=== PATIENT | male | born 1975 | race Caucasian/White ===

== ENCOUNTER 2017-05-14 14:41 | Emergency (ER) | payer SELFPAY ==
[~2017-05-14] VITALS: Ht 175.3 cm; Wt 113.4 kg
[~2017-05-14 14:41] MED LIST: BMSB30; CPR500T PO; DIPH1TAB25; METH10TA2 PO; TRM50T PO
--- OUTSIDE RECORDS SUMMARY | 2017-05-14 14:49 | XMS REPORT ---
Author JEANNE [facility] eClinicalWorks Address Unknown Phone Unavailable Care Team Providers Care Resolution Agent Name Role Phone JEANNE YOUSIF CP Unavailable Allergies, Adverse Reactions, Alerts Substance Reaction Event Type N.K.D.A. Info Not Available Non Drug Allergy Problems Problem Type Condition Code Onset Dates Condition Status Problem Obstructive sleep apnea (adult) (pediatric) 327.23 Active Problem Anxiety state, unspecified 300.00 Active Problem Elevated blood pressure reading without diagnosis of hypertension 796.2 Active Assessment Dental examination Z01.20 Active Medications No Known Medications Procedures Procedure Coding System Code Date BITEWINGS - FOUR FILMS CPT-4 D0274 Apr 03, 2016 PANORAMIC FILM SEE ALSO CODE 13934 CPT-4 D0330 Apr 03, 2016 COMP ORAL EVALUATION - NEW/EST PT CPT-4 D0150 Apr 03, 2016 Vital Signs Date/Time: Apr 03, 2016 Blood Pressure Diastolic 75 mmHg Blood Pressure Systolic 133 mmHg Height 69 in Results No Known Results Summary Purpose eClinicalWorks Submission
--- OUTSIDE RECORDS SUMMARY | 2017-05-14 14:49 | XMS REPORT | Continuity of Care Document ---
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 10/27/2008 LYLE BULLARD DDS N 311 MO DEPRESSIVE DISORDER NOS 10/27/2008 BRIDGETTE STEVENS MD 304.00 SA OPIOID DEPENDENCE 10/27/2008 BRIDGETTE STEVENS MD 311 MO DEPRESSIVE DISORDER NOS 12/01/2008 304.80 SA POLYSUB DEP 12/01/2008 314.01 ATTENTION-DEFICIT HYPERACTIVITY DISORDER 12/01/2008 LYLE BULLARD DDS N 304.80 SA POLYSUB DEP 12/01/2008 LYLE BULLARD DDS N 314.01 ATTENTION-DEFICIT HYPERACTIVITY DISORDER 12/01/2008 RBIDGETTE STEVENS MD 304.80 SA POLYSUB DEP 12/01/2008 BRIDGETTE STEVENS MD 314.01 ATTENTION-DEFICIT HYPERACTIVITY DISORDER 12/06/2008 296.30 MAJOR DEPRESSIVE AFFECTIVE DISORDER RECURRENT EPISODE UNSPECIFIED DEGREE 12/06/2008 379.91 PAIN IN OR AROUND EYE 12/06/2008 LYLE BULLARD DDS N 296.30 MAJOR DEPRESSIVE AFFECTIVE DISORDER RECURRENT EPISODE UNSPECIFIED DEGREE 12/06/2008 LYLE BULLARD DDS N 379.91 PAIN IN OR AROUND EYE 12/06/2008 BRIDGETTE STEVENS MD 296.30 MAJOR DEPRESSIVE AFFECTIVE DISORDER RECURRENT EPISODE UNSPECIFIED DEGREE 12/06/2008 BRIDGETTE STEVENS MD 379.91 PAIN IN OR AROUND EYE 01/11/2009 304.03 OPIOID TYPE DEPENDENCE IN REMISSION 01/11/2009 LYLE BULLARD DDS N 304.03 OPIOID TYPE DEPENDENCE IN REMISSION 01/11/2009 BRIDGETTE STEVENS MD 304.03 OPIOID TYPE DEPENDENCE IN REMISSION 01/31/2009 780.79 FATIGUE 01/31/2009 LYLE BULLARD DDS 780.79 FATIGUE 01/31/2009 BRIDGETTE STEVENS MD 780.79 FATIGUE 09/29/2009 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 09/29/2009 LYLE BULLARD DDS 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 09/29/2009 BRIDGETTE STEVENS MD 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 04/30/2012 796.2 ELEVATED BLOOD PRESSURE READING WITHOUT DIAGNOSIS OF HYPERTENSION 04/30/2012 LYLE BULLARD DDS 796.2 ELEVATED BLOOD PRESSURE READING WITHOUT DIAGNOSIS OF HYPERTENSION 04/30/2012 BRIDGETTE STEVENS MD 796.2 ELEVATED BLOOD PRESSURE READING WITHOUT DIAGNOSIS OF HYPERTENSION 07/16/2012 300.00 AN ANXIETY UNSPEC 07/16/2012 LYLE BULLARD DDS 300.00 AN ANXIETY UNSPEC 07/16/2012 BRIDGETTE STEVENS MD 300.00 AN ANXIETY UNSPEC 12/07/2013 BRIDGETTE STEVENS MD 327.23 OBSTRUCTIVE SLEEP APNEA (ADULT) (PEDIATRIC) Procedures Code [place] [address] PSYCH DIAG INTER EXAM 07/16/2012 71544 SLEEP STUDY 10/15 Results Encounters ACCT No. Visit Date/Time Discharge Status Pt. Type Provider Facility Loc./Unit Complaint [id number] 12/07/2013 15:31:00 12/07/2013 23: 59:59 [place] [id number] 07/16/2012 15:12:00 07/16/2012 23: 59:59 CLS Outpatient [id number] 07/16/2012 15:12:00 07/16/2012 23: 59:59 CLS Outpatient LYLE BULLARD DDS
[2017-05-14] MEDS ORDERED: LIDOCAINE 2% 20 ML (XYLOCAINE) VIAL ONE (15:23)
[2017-05-14] MEDS ORDERED: LIDOCAINE 2% 20 ML (XYLOCAINE) VIAL INJ ONE (15:30)
--- NOTE | 2017-05-14 15:39 | Diagnostic Imaging Report ---
EXAM: 3 views of the left foot. INDICATION: Injury. FINDINGS: There is flattening of the plantar arch. The joint alignment is satisfactory. No fracture or dislocation is seen. No radiopaque foreign body. There is mild calcaneal spurring seen. Mild soft tissue swelling along the plantar aspect of the foot at the mid calcaneus level is seen. IMPRESSION: No acute osseous abnormality. Dictated by: Dictated on workstation # [id number]
--- NOTE | 2017-05-14 15:57 | ED Lower Extremity ---
General Chief Complaint: Foreign Body Stated Complaint: LT FOOT PAIN//POSSIBLY SOMETHING STUCK IN IT Nursing Triage Note: AMB TO ROOM WITH FEMALE. PATIENT REORTS THAT HAD POSSIBLE HAD SOMETHING IN L FOOT. Nursing Sepsis Screen: No Definite Risk Source: patient Exam Limitations: no limitations History of Present Illness Time seen by provider: 15:51 Initial Comments To ER with a one-week history of pain to the medial aspect of the right foot just distal to the heel. Stepped on something at home but doesn't know what period of time he takes a step this is painful. No fevers or chills. See a black speck beneath the skin. Also reports that his right ear is clogged and he needs it cleaned out. Onset: last week Severity: moderate Pain/Injury Location: left foot Method of Injury: unknown Allergies and Home Medications Allergies Coded Allergies: NKANo Known Allergies (Verified Allergy, Unknown, 10/01/05) Home Medications Methadone Hcl 10 Mg Tablet, 35 MG PO DAILY, (Reported) Sulfamethoxazole/Trimethoprim 1 Each Tablet, 1 EACH PO BID, #14 Prescribed by: RICHAR SIDDIQUI on 05/14/17 1558 Tramadol Hcl 50 Mg Tab, 50 MG PO Q6H, (Reported) Constitutional: see HPI EENTM: see HPI, hearing loss Respiratory: no symptoms reported Cardiovascular: no symptoms reported Genitourinary: no symptoms reported Musculoskeletal: no symptoms reported Skin: see HPI Psychiatric/Neurological: No Symptoms Reported Past Vwjzvwz-Psabjq-Ucsinm Hx Patient Social History Alcohol Use: Past History Recreational Drug Use: Yes (CLEAN FOR 5 YEARS) Smoking Status: Current Everyday Smoker Recent Foreign Travel: No Contact w/Someone Who Travel: No Recent Infectious Disease Expo: No Surgeries History of Surgeries: Yes Surgeries: Gallbladder Respiratory History of Respiratory Disorde: No Cardiovascular History of Cardiac Disorders: No Neurological History of Neurological Disord: No Reproductive System Hx Reproductive Disorders: No Sexually Transmitted Disease: No Gastrointestinal History of Gastrointestinal Di: No Musculoskeletal History of Musculoskeletal Dis: No Endocrine History of Endocrine Disorders: No Blood Transfusions History of Blood Disorders: No Physical Exam Vital Signs Vital Sign - Last 12Hours 05/14/17 14:48 Temp 98.2 Pulse 89 Resp 18 B/P (MAP) 120/70 Pulse Ox 98 Capillary Refill : Less Than 3 Seconds General Appearance: WD/WN, no apparent distress HEENT: TMs normal, pharynx normal, other (cerumen impaction in the right ear easily removed with curette) Neck: non-tender, full range of motion Respiratory: no respiratory distress, no accessory muscle use Gastrointestinal: non tender, soft Hips: bilateral hip non-tender, bilateral hip normal inspection, bilateral hip normal range of motion Legs: bilateral leg non-tender, bilateral leg normal inspection, bilateral leg normal range of motion Knees: bilateral knee non-tender, bilateral knee normal inspection, bilateral knee normal range of motion Ankles: bilateral ankle non-tender, bilateral ankle normal inspection, bilateral ankle normal range of motion Feet: left foot other (negative swelling around a dark speck to the medial aspect of the left foot just anterior to the heel. This about one to 2 mm with about 1 cm surrounding inflammation. No obvious fluctuance) Neurologic/Psychiatric: alert, normal mood/affect, oriented x 3 I&D : Blade Size: 11 Progress Area around the black speck on his foot was anesthetized with 1 mL of 2 percent lidocaine without epinephrine. The callus overlying this dark speck was shaved off with a 15 blade scalpel. An 11 blade scalpel was then used to remove this black speck. Uncertain as to what this was, may have been a splinter however is very soft at this point. There was a bit of surrounding purulent material that was easily expressed. Culture this was collected and sent to lab. The cavity was then irrigated with chlorhexidine/saline solution. 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 Decision time for Depature: 15:55 Referrals: NO,LOCAL PHYSICIAN (PCP/Family) Primary Care Physician Patient Instructions: NO INSTRUCTIONS GIVEN Add. Discharge Instructions: 1. Return to ER for any concerns 2. Take this bandage off tomorrow and covered with a simple Band-Aid. You may use Neosporin 3. Take the antibiotics as directed Scripts Sulfamethoxazole/Trimethoprim (Bactrim Ds Tablet) 1 Each Tablet 1 EACH PO BID, #14 TAB Prov: RICHAR SIDDIQUI APRN 05/14/17 RICHAR SIDDIQUI APRN May 14, 2017 15:57
[2017-05-14] MEDS ORDERED: SULF1TAB35 PO (15:58)
[2017-05-14 16:11] VITALS: BP 120/70
== END 2017-05-14 16:11 | disposition home or self-care (01) ==
LOC: EDUNIT# 14:41 → ER 14:45
DX: S90.851A Superficial foreign body, right foot, initial encounter (principal); H61.21 Impacted cerumen, right ear; F17.200 Nicotine dependence, unspecified, uncomplicated; W22.8XXA Striking against or struck by other objects, initial encounter
CPT/HCPCS: 73630; 87070; 87186; 87205; 99282

== ENCOUNTER 2022-07-07 16:55 | Emergency (ER) | payer SELFPAY ==
[~2022-07-07] VITALS: Ht 178 cm; Wt 113.4 kg
[~2022-07-07 16:55] MED LIST changes: +SULF1TAB38 PO
--- NOTE | 2022-07-07 17:24 | ED EENT ---
History of Present Illness General Chief Complaint: Ear Problems Stated Complaint: UNABLE TO HEAR OUT OF LEFT EAR Source: patient Exam Limitations: no limitations (MARVIN CARLSON) History of Present Illness Date Seen by Provider: Jul 07, 2022 Time Seen by Provider: 17:14 Initial Comments Patient is a 46 y/o M with history of DM who presents to the ER with CC of left sided hearing loss onset 4 days ago. Patient reports he went scuba diving in [place] and later got on an airplane within the same 24 hours. States his ears were congested prior to diving and he was having difficulty equalizing pressure on his dive. States that his right ear has progressively improved and is not bothering him as much as his left ear. Reports his left ear is "completely clogged". Bending forward improved his hearing out of both ears. He has tried warm wash clothes to the left ear as well as mucinex, ibuprofen, and nasal sprays. His last dose of ibuprofen and mucinex was today. They do not seem to help much. Denies headache, dizziness, or N/V at this time. Timing/Duration: other (4 days ago) Location: ear (L) Associated Symptoms: change in hearing (MARVIN CARLSON) Allergies and Home Medications Allergies Coded Allergies: NKANo Known Allergies (Verified Allergy, Unknown, 10/01/05) Patient Home Medication List Home Medication List Reviewed: Yes (MARVIN CARLSON) Methadone Hcl (Methadone Hcl) 10 Mg Tablet, 35 MG PO DAILY, (Reported) Entered as Reported by: KAYLA MYLES on 01/10/11 1143 Pseudoephedrine HCl (Pseudoephedrine HCl) 60 Mg Tablet, 60 MG PO Q6H Prescribed by: DEANA HORTA on 07/07/22 1734 Sulfamethoxazole/Trimethoprim (Bactrim Ds Tablet) 1 Each Tablet, 1 EACH PO BID Prescribed by: RICHAR SIDDIQUI on 05/14/17 1558 Tramadol Hcl (Ultram) 50 Mg Tab, 50 MG PO Q6H, (Reported) Entered as Reported by: MARCELO FRANKS on 01/11/11 1721 Review of Systems Review of Systems Ears: Denies Dizziness; Other (left sided hearing loss) Neurological: Denies Headache (MARVIN CARLSON) Constitutional: see HPI Eyes: No Symptoms Reported Nose: no symptoms reported Throat: no symptoms reported Respiratory: no symptoms reported Cardiovascular: no symptoms reported Gastrointestinal: no symptoms reported (DEANA HORTA MD) All Other Systems Reviewed Negative Unless Noted: Yes (DEANA HORTA MD) Past Ellzssd-Zcldyw-Bypwya Hx Patient Social History Tobacco Use?: Yes Tobacco type used: Cigarettes Smoking Status: Current Everyday Smoker Use of E-Cig and/or Vaping dev: No Substance use?: No Alcohol Use?: No Pt feels they are or have been: No (MARVIN CARLSON) Immunizations Up To Date Influenza Vaccine Up-to-Date: Yes; Up-to-Date First/Initial COVID19 Vaccinat: 11/06 Second COVID19 Vaccination [place]hane: 12/08 COVID19 Vaccine Driver Service Technician: GIANNA (MARVIN CARLSON) Past Medical History Surgeries: Yes Gallbladder Respiratory: No Cardiac: No Neurological: No Reproductive Disorders: No Sexually Transmitted Disease: No Gastrointestinal: No Musculoskeletal: No Endocrine: No Blood Disorders: No (MARVIN CARLSON) Physical Exam Vital Signs Vital Signs - First Documented 07/07/22 17:00 Temp 36.3 Pulse 68 Resp 12 B/P (MAP) 131/82 (98) Pulse Ox 99 O2 Delivery Room Air (DEANA HORTA MD) Height, Weight, BMI Height: 5'9.00" Weight: 250lbs. oz. 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 Patient went scuba diving approximately 60 feet on Saturday and then later that evening flew home. He denies symptoms of decompressions illness. No headache, no confusion, no vomiting, no dizziness no increased fatigue. He states since he has had increasing left ear pain and decreased hearing. He states when he bends forward he can actually hear a little bit better. No drainage from the left ear. I have seen and evaluated the patient performed an independent HPI and physical exam, I have reviewed the medical student's documentation and agree. Physical exam findings remarkable for fairly extensive hemotympanum on the left with a bulging left tympanic membrane. No obvious perforation, no drainage. No pain to the ear itself. No periauricular lymphadenopathy. Patient is neurologically intact. Recommended decongestants, Sudafed 60 mg every 6 hours and drinking lots of fluids. Ibuprofen for discomfort. Recommended that he call Dr. Hamilton, ENT on Saturday for a follow-up appointment Saturday or Saturday. Patient verbalized understanding and agreement of plan of care all questions are sought and answered. Return precautions provided patient is stable for discharge. (DEANA HORTA MD) Departure Impression Primary Impression: Ear barotrauma Qualified Codes: T70.0XXA - Otitic barotrauma, initial encounter Additional Impression: Hematotympanum of left ear Disposition: HOME, SELF-CARE Condition: Stable Departure-Patient Inst. Decision time for Depature: 17:31 (DEANA HORTA MD) Referrals: NAVEEN HAMILTON MD NO,LOCAL PHYSICIAN (PCP) Primary Care Physician Patient Instructions: Eustachian Tube Problems Add. Discharge Instructions: Take the Pseudophed 60mg every 6 hours as needed for congestion. Drink lots of fluids to stay well hydrated. Over the counter Ibuprofen 3 pills which is 600mg every 6 hours with food as needed for pain. Please call and follow up with Dr Hamilton first thing Saturday to try and get an appointment that day to be seen in clinic. If you develop a fever, worsening ear pain, dizziness with vomiting, return to the Emergency Department for re-evaluation. Scripts Pseudoephedrine HCl (Pseudoephedrine HCl) 60 Mg Tablet 60 MG PO Q6H, #30 TAB Prov: DEANA HORTA MD 07/07/22 Work/School Note: Work Release Form Date Seen in the Emergency Department: Jul 07, 2022 Return to Work: Jul 10, 2022 Verification and Attestation of Medical Student E/M Service A medical student performed and documented this service in my presence. I reviewed and verified all information documented by the medical student and made modifications to such information, when appropriate. I personally performed the physical exam and medical decision making. Deana Horta, Jul 07, 2022,17:37 (DEANA HORTA MD) Copy Copies To 1: NAVEEN HAMILTON MD, NATASHA Jul 07, 2022 17:24 DEANA HORTA MD Jul 07, 2022 17:35
[2022-07-07] MEDS ORDERED: PSEU60TA88 PO (17:34)
[2022-07-07 17:45] VITALS: BP 124/76
== END 2022-07-07 17:45 | disposition home or self-care (01) ==
LOC: EDUNIT# 16:55 → ER 16:58
DX: T70.0XXA Otitic barotrauma, initial encounter (principal); H74.8X2 Other specified disorders of left middle ear and mastoid; F17.210 Nicotine dependence, cigarettes, uncomplicated
CPT/HCPCS: 99281

== ENCOUNTER 2022-11-29 22:25 | Emergency (ER) | payer SELFPAY ==
[~2022-11-29] VITALS: Ht 178 cm; Wt 113.4 kg
[~2022-11-29 22:25] MED LIST changes: +PSEU60TA88 PO
--- NOTE | 2022-11-29 22:32 | ED General ---
General Stated Complaint: HOT AND COLD FLASHES AND TINGELY FEELING History of Present Illness Date Seen by Provider: Nov 29, 2022 Time Seen by Provider: 22:43 Initial Comments 47-year-old male presents because he felt like he was having some "hot and cold flashes" earlier today and [place] "tingly all over this now resolved. He reports having around 10:00. That he feels fine now. He did report that he took a little bit more sumatriptan than normally for headache but otherwise no other changes. No fever chills nausea vomiting or other systemic complaints. Allergies and Home Medications Allergies Coded Allergies: NKANo Known Allergies (Verified Allergy, Unknown, 10/01/05) Patient Home Medication List Home Medication List Reviewed: Yes Methadone Hcl (Methadone Hcl) 10 Mg Tablet, 35 MG PO DAILY, (Reported) Entered as Reported by: KAYLA MYLES on 01/10/11 1143 Pseudoephedrine HCl (Pseudoephedrine HCl) 60 Mg Tablet, 60 MG PO Q6H Prescribed by: DEANA HORTA on 07/07/22 1734 Sulfamethoxazole/Trimethoprim (Bactrim Ds Tablet) 1 Each Tablet, 1 EACH PO BID Prescribed by: RICHAR SIDDIQUI on 05/14/17 1558 Tramadol Hcl (Ultram) 50 Mg Tab, 50 MG PO Q6H, (Reported) Entered as Reported by: MARCELO FRANKS on 01/11/11 1721 Review of Systems Review of Systems Constitutional: see HPI; No dizziness, No malaise EENTM: no symptoms reported Respiratory: no symptoms reported Cardiovascular: no symptoms reported Gastrointestinal: no symptoms reported Genitourinary: no symptoms reported Musculoskeletal: no symptoms reported Skin: no symptoms reported Psychiatric/Neurological: See HPI Past Suwrzyf-Equuyx-Xcyrkl Hx Immunizations Up To Date First/Initial COVID19 Vaccinat: 11/06 Second COVID19 Vaccination Berhane: 12/08 Past Medical History Surgeries: Yes Gallbladder Respiratory: No Cardiac: No Neurological: No Reproductive Disorders: No Sexually Transmitted Disease: No Gastrointestinal: No Musculoskeletal: No Endocrine: No Blood Disorders: No Physical Exam Vital Signs Vital Signs - First Documented 11/29/22 22:38 Temp 36.3 Pulse 80 Resp 16 B/P (MAP) 144/96 (112) Pulse Ox 95 O2 Delivery Room Air Capillary Refill : Height, Weight, BMI Height: 5'9.00" Weight: 250lbs. oz. 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 Skin: Normal Color, Warm/Dry Progress/Results/Core Measures Suspected Sepsis SIRS Temperature: Pulse: Respiratory Rate: Laboratory Tests 11/29/22 22:51: White Blood Count 7.4 Blood Pressure / Mean: Laboratory Tests 11/29/22 22:51: Creatinine 0.84, Platelet Count 129L, Total Bilirubin 0.5 Results/Orders Lab Results Laboratory Tests Test 11/29/22 22:51 11/29/22 23:14 Range/Units White Blood Count 7.4 4.3-11.0 10^3/uL Red Blood Count 6.23 H 4.30-5.52 10^6/uL Hemoglobin 19.8 H 13.3-17.7 g/dL Hematocrit 55 H 40-54 % Mean Corpuscular Volume 89 80-99 fL Mean Corpuscular Hemoglobin 32 25-34 pg Mean Corpuscular Hemoglobin Concent 36 32-36 g/dL Red Cell Distribution Width 12.4 10.0-14.5 % Platelet Count 129 L 130-400 10^3/uL Mean Platelet Volume 10.7 9.0-12.2 fL Immature Granulocyte % (Auto) 1 % Neutrophils (%) (Auto) 65 42-75 % Lymphocytes (%) (Auto) 24 12-44 % Monocytes (%) (Auto) 8 0-12 % Eosinophils (%) (Auto) 1 0-10 % Basophils (%) (Auto) 1 0-10 % Neutrophils # (Auto) 4.9 1.8-7.8 10^3/uL Lymphocytes # (Auto) 1.8 1.0-4.0 10^3/uL Monocytes # (Auto) 0.6 0.0-1.0 10^3/uL Eosinophils # (Auto) 0.1 0.0-0.3 10^3/uL Basophils # (Auto) 0.1 0.0-0.1 10^3/uL Immature Granulocyte # (Auto) 0.1 0.0-0.1 10^3/uL Percent Immature Platelet Fraction 6.1 0.0-7.6 % Sodium Level 137 135-145 MMOL/L Potassium Level 3.9 3.6-5.0 MMOL/L Chloride Level 100 98-107 MMOL/L Carbon Dioxide Level 25 21-32 MMOL/L Anion Gap 12 5-14 MMOL/L Blood Urea Nitrogen 14 7-18 MG/DL Creatinine 0.84 0.60-1.30 MG/DL Estimat Glomerular Filtration Rate 110 BUN/Creatinine Ratio 17 Glucose Level 185 H 70-105 MG/DL Calcium Level 9.2 8.5-10.1 MG/DL Corrected Calcium 9.0 8.5-10.1 MG/DL Total Bilirubin 0.5 0.1-1.0 MG/DL Aspartate Amino Transf (AST/SGOT) 15 5-34 U/L Alanine Aminotransferase (ALT/SGPT) 23 0-55 U/L Alkaline Phosphatase 41 40-136 U/L Total Protein 6.8 6.4-8.2 GM/DL Albumin 4.2 3.2-4.5 GM/DL Smear Scan 0 CLUMPS OBSERVED Urine Color YELLOW Urine Clarity CLEAR Urine pH 6.0 5-9 Urine Specific [place] <=1.005 1.016-1.022 Urine Protein NEGATIVE NEGATIVE Urine Glucose (UA) NEGATIVE NEGATIVE Urine Ketones NEGATIVE NEGATIVE Urine Nitrite NEGATIVE NEGATIVE Urine Bilirubin NEGATIVE NEGATIVE Urine Urobilinogen 0.2 < = 1.0 MG/DL Urine Leukocyte Esterase NEGATIVE NEGATIVE Urine RBC (Auto) NEGATIVE NEGATIVE Urine RBC NONE /HPF Urine WBC NONE /HPF Urine Crystals NONE /LPF Urine Bacteria NEGATIVE /HPF Urine Casts NONE /LPF Urine Mucus NEGATIVE /LPF Urine Culture Indicated NO My Orders Orders - DIAZ,ADALGISA L DO Cbc With Automated Diff (11/29/22 22:45) Comprehensive Metabolic Panel (11/29/22 22:45) Ua Culture If Indicated (11/29/22 22:45) Vital Signs/I&O 11/29/22 22:38 Temp 36.3 Pulse 80 Resp 16 B/P (MAP) 144/96 (112) Pulse Ox 95 O2 Delivery Room Air Capillary Refill : Progress Note : Progress Note Patient's diagnostic studies were ordered reviewed and interpreted by me. Patient does have an increased hemoglobin is likely as a result of his smoking. Patient was asymptomatic throughout his stay. He otherwise has a normal evaluation after physical exam and labs. That could be due to his increased sumatriptan however it is difficult to say what caused the symptoms. This time he is feeling better with no symptoms. He is stable and discharged home. He was recommended to return with any concerns or worsening of symptoms. He is stable and discharged Departure Impression Primary Impression: Tingling Disposition: 01 HOME, SELF-CARE Condition: Stable Departure-Patient Inst. Referrals: NO,LOCAL PHYSICIAN (PCP/Family) Primary Care Physician Patient Instructions: Paresthesia (DC) Add. Discharge Instructions: Follow-up with your primary care provider in the next couple days for recheck of your symptoms. Return to the ER with any concerns. ADALGISA DIAZ DO Nov 29, 2022 22:32
[2022-11-29 23:01] LABS: BASOPHILS # (AUTO) 0.1 10^3/uL (0.0-0.1); BASOPHILS % (AUTO) 1 % (0-10); EOSINOPHILS # (AUTO) 0.1 10^3/uL (0.0-0.3); EOSINOPHILS % (AUTO) 1 % (0-10); HEMATOCRIT 55 % (40-54); HEMOGLOBIN 19.8 g/dL (13.3-17.7); LYMPHOCYTES # (AUTO) 1.8 10^3/uL (1.0-4.0); LYMPHOCYTES % (AUTO) 24 % (12-44); MEAN CORPUSCULAR HEMOGLOBIN 32 pg (25-34); MEAN CORPUSCULAR HGB CONC 36 g/dL (32-36); MEAN CORPUSCULAR VOLUME 89 fL (80-99); MEAN PLATELET VOLUME 10.7 fL (9.0-12.2); MONOCYTES # (AUTO) 0.6 10^3/uL (0.0-1.0); MONOCYTES % (AUTO) 8 % (0-12); NEUTROPHILS # (AUTO) 4.9 10^3/uL (1.8-7.8); NEUTROPHILS % (AUTO) 65 % (42-75); PLATELET COUNT 129 10^3/uL (130-400); WHITE BLOOD COUNT 7.4 10^3/uL (4.3-11.0)
[2022-11-29 23:09] LABS: ALBUMIN 4.2 GM/DL (3.2-4.5)
[2022-11-29 23:10] LABS: POTASSIUM 3.9 MMOL/L (3.6-5.0)
[2022-11-29 23:11] LABS: CALCIUM 9.2 MG/DL (8.5-10.1)
[2022-11-29 23:12] LABS: TOTAL PROTEIN 6.8 GM/DL (6.4-8.2)
[2022-11-29 23:14] LABS: BILIRUBIN,TOTAL 0.5 MG/DL (0.1-1.0)
[2022-11-29 23:15] LABS: CREATININE SERUM 0.84 MG/DL (0.60-1.30)
[2022-11-29 23:17] LABS: SMEAR SCAN COMMENT 0 CLUMPS OBSERVED
[2022-11-29 23:20] LABS: BILIRUBIN,URINE NEGATIVE (NEGATIVE); CLARITY,URINE CLEAR; COLOR,URINE YELLOW; GLUCOSE, URINE (UA) NEGATIVE (NEGATIVE); KETONES,URINE NEGATIVE (NEGATIVE); LEUKOCYTE ESTERASE ,URINE NEGATIVE (NEGATIVE); NITRITE,URINE NEGATIVE (NEGATIVE); PROTEIN,URINE NEGATIVE (NEGATIVE)
[2022-11-29 23:35] LABS: BACTERIA,URINE NEGATIVE /HPF
[2022-11-30 00:03] VITALS: BP 134/87
== END 2022-11-30 00:04 | disposition home or self-care (01) ==
LOC: EDUNIT# 22:25 → ER 22:28
DX: R20.2 Paresthesia of skin (principal); R51.9 Headache, unspecified
CPT/HCPCS: 36415; 80053; 81000; 85025; 99282